=== PATIENT | male | born 1955 | race Caucasian/White ===

== ENCOUNTER 2018-12-13 00:53 | Emergency (ER) | payer OTHER ==
[~2018-12-13] VITALS: Ht 185.4 cm; Wt 117.0 kg
[2018-12-13] MEDS ORDERED: LOVASTATIN40 MG PO (01:07)
[2018-12-13] MEDS ORDERED: METOPROLOL SUCC25 MG PO (01:08)
[2018-12-13] MEDS ORDERED: PROTONIX40 MG PO (02:17)
--- NOTE | 2018-12-13 20:05 | EKG ---
[facility] [address] [facility] [place], [place] [address] Signed Sinus rhythm with marked sinus arrhythmia Otherwise normal ECG No previous ECGs available Confirmed by BON REDD MD ([id number]) on 12/13/2018 8:05:15 PM Electronically Signed By: BON REDD MD 12/13/18 2005 PATIENT NAME: SHOSHANA JARAMILLO Fadi Electrocardiogram DATE OF : 57 PHYSICIAN: BON REDD MD REPORT #: [id number] REPORT IS CONFIDENTIAL AND NOT TO BE RELEASED WITHOUT AUTHORIZATION
== END 2018-12-13 02:33 | disposition home or self-care (01) ==
LOC: ED 00:53
DX: K21.9 Gastro-esophageal reflux disease without esophagitis (principal); I10 Essential (primary) hypertension; E78.5 Hyperlipidemia, unspecified; Z79.899 Other long term (current) drug therapy
CPT/HCPCS: 71045; 80053; 83735; 84484; 85025; 85379; 93005; 93010; 99285-25

== ENCOUNTER 2018-12-14 10:41 | Observation (INO) | payer OTHER ==
[~2018-12-14] VITALS: Ht 188 cm; Wt 117.9 kg
[~2018-12-14 10:41] MED LIST: LOVASTATIN40 MG PO; METOPROLOL SUCC25 MG PO; PROTONIX40 MG PO
--- OUTSIDE RECORDS SUMMARY | 2018-12-14 10:44 | XMS ---
PreManage Notification: SHOSHANA JARAMILLO Security Border Measurer Events No recent Security Events currently on file CRITERIA MET - [facility] - 2 Visits in 30 Days CARE PROVIDERS There are no care providers on record at this time. Erica has no Care Guidelines for this patient. Emanuel VISIT COUNT (12 MO.) [address] [facility] TOTAL 2 NOTE: Visits indicate total known visits. ED/C VISIT TRACKING (12 MO.) 12/14/2018 10:41 [facility] [place] TYPE: Emergency COMPLAINT: - CHEST PAIN 12/13/2018 00:54 [facility] [place] TYPE: Emergency COMPLAINT: - CHEST PAIN/SOB INPATIENT VISIT TRACKING (12 MO.) No inpatient visits to display in this time frame [id number]
[2018-12-15] MEDS ORDERED: ASPIRIN EC81 MG PO (09:18)
[2018-12-15] MEDS ORDERED: METOPROLOL SUCC50 MG PO (09:18)
[2018-12-15] MEDS ORDERED: IBUPROFEN800 MG PO (09:19)
[2018-12-15] MEDS ORDERED: FAMOTIDINE20 MG PO (09:19)
--- NOTE | 2018-12-15 12:32 | EKG ---
[facility] [address] [place] [address] Signed Atrial fibrillation with rapid ventricular rate Nonspecific ST abnormality Abnormal ECG When compared with ECG of 13-DEC-2018 00:58, premature supraventricular complexes are now present Vent. rate has increased BY 68 BPM Nonspecific T wave abnormality now evident in Inferior leads Reconfirmed by BON REDD MD ([id number]) on 12/15/2018 12:32:38 PM Electronically Signed By: BON REDD MD 12/15/18 1232 Electronically Signed By: BON REDD MD 12/15/18 1232 PATIENT NAME: SHOSHANA JARAMILLO Electrocardiogram DATE OF : 57 PHYSICIAN: BON REDD MD REPORT #: [id number] REPORT IS CONFIDENTIAL AND NOT TO BE RELEASED WITHOUT AUTHORIZATION
== END 2018-12-15 11:02 | disposition home or self-care (01) ==
LOC: ED 10:41 → CCU 10:42
PROVIDERS: ADMIT Internal Medicine
DX: I48.0 Paroxysmal atrial fibrillation (principal); I31.9 Disease of pericardium, unspecified; I10 Essential (primary) hypertension; E78.5 Hyperlipidemia, unspecified; Z79.899 Other long term (current) drug therapy; Z88.8 Allergy status to other drugs, medicaments and biological substances
CPT/HCPCS: 71046; 80053; 83036; 83735; 83880; 84484; 85025; 85651; 86140; 93005; 93010; 96374; 96375; 99284-25; G0378; J3475

== ENCOUNTER 2020-10-25 10:58 | Inpatient (IN) | payer OTHER ==
[~2020-10-25] VITALS: Ht 188 cm; Wt 117.9 kg
[~2020-10-25 10:58] MED LIST changes: +ASPIRIN EC81 MG PO; +FAMOTIDINE20 MG PO; +IBUPROFEN800 MG PO; +METOPROLOL SUCC50 MG PO
[2020-10-25] MEDS ORDERED: VIRTUSSIN AC L118 ML PO (11:37)
[2020-10-25] MEDS ORDERED: IRBESARTAN-HCT1 EACH PO (11:37)
--- NOTE | 2020-10-25 16:50 | NUR ---
MED REC COMPLETE
--- NOTE | 2020-10-25 17:06 | NUR ---
PT ARRIVED AT 1440, VIA STRETCHER FROM ED, UP TO BR, VOIDED QS, DARK URINE. SOB WITH EXERTION PRESENTL. DIAPHORETIC, AFEBRILE HAD A TEMP EARLIER IN ED. BACK TO BED. COOP. LUNGS COARSE AND CRACKLES. O2 2LONC, LAST BM X1WK AGO STATED, ABD SOFT, HERB. IRREGULAR RATE, HX AFIB. NO CP. SL R WRIST. PATENT. COOP WITH ADMIT ASSESSMENT.
--- NOTE | 2020-10-25 18:05 | NUR ---
PT ADMITTED FROM ED, SBA, UP TO BR, VOIDED QS URINE. TOLERATING LIQUIDS WELL. SOB WITH EXERTION NOTED ON RETURN TO BED. O2 2LNC ON ADMIT, CPOX AT 90-94% LUNGS DIM UPPER AND CRACKLES AT BASES. A TEMP OF 101.8 IN THE ED. RECEIVED TYLENOL. PT WAS AFEBRILE ON ADMIT TO M/S. WAS VERY DIAPHORETIC. SKIN DRIED. NEW GOWN GIVEN. PRONING POSITIONS AND MED ED PAMPHLET EDUCATION GIVEN VERBALLY AND PT STATED UNDERSTANDING. COOPERATIVE. AWARE OF AIRBORNE ISOLATION PRECAUTIONS. SL PATENT
--- NOTE | 2020-10-25 18:50 | NUR ---
Resting, O2 in place, no distress, eyes closed. fluids and cll light at bedside
--- NOTE | 2020-10-25 19:20 | NUR ---
SHIFT REPORT RECEIVED FROM DAYSHIFT WILLIAM VILLARREAL IN HALLWAY. pt AWAKE AND ON THE PHONE, 2LNC IN PLACE. CPOX ALSO IN PLACE. SPO2 LOW 90'S AND HR WNL. NO NEEDS VERBALIZED, CALL LIGHT IN REACH.
--- NOTE | 2020-10-25 20:52 | NUR ---
ASSESSMENT COMPLETE, SCHEDULED MEDS GIVEN (SEE EMAR). pt DENIES PAIN AND NAUSEA. VSS, pt AFEBRILE. CPOX IN PLACE, 2LNC IN PLACE. pt IN BED, pt EDUCATED ON IMPORTANCE OF PRONING AND DEEP BREATHING ALONG WITH USE OF IS. pt VERBALIZED UNDERSTANDING. INDEPENDENT IN ROOM. NO FURTHER NEEDS, CALL LIGHT IN REACH.
--- NOTE | 2020-10-26 00:23 | NUR ---
ROUNDED ON pt, pt RESTING QUIETLY AND AWOKE TO VOICE. DENIES NEEDS OR CONCERNS. RESTING QUIETLY ON HIS RIGHT SIDE, CALL LIGHT IN REACH. RR EVEN AND UNLABORED. CPOX IN PLACE, 2LNC IN PLACE, SPO2 AND HR BOTH LOW 90'S.
--- NOTE | 2020-10-26 01:49 | NUR ---
CPOX ALARMING, THIS RN TO ASSESS. SPO2 MID TO UPPER 80'S ON 2LNC. pt REPORTS HE RECENTLY GOT OOB TO VOID AND IS BACK IN BED. O2 TITRATED TO 4LNC TO RECOVER AND IS NOW 3.5LNC AND SPO2 SUSTAINING AT 90%. HR 90'S. ASSESSMENT COMPLETE, NO NEW CHANGES OR CONCERNS. pt STATES, "IT HAPPENS EVERY TIME I GET UP TO PEE, BUT NO WAY IN HECK AM I GONNA USE THAT THING", POINTING TO URINAL. BSC OFFERED TO BE PULLED CLOSER TO BED, pt DECLINED. ORAL TEMP OF 100.1, pt COUGHED WITH USE OF IS, TEMP RECHECKED AND IS 99.6. PRN TYLENOL GIVEN. NO FURTHER NEEDS, CALL LIGHT IN REACH.
--- NOTE | 2020-10-26 05:49 | NUR ---
WRITTEN EDUCATION REGARDING PRONING ALREADY IN ROOM, pt VERBALIZES UNDERSTANDING. HOUSEKEEPER MANAGER JEANNE IN ROOM COLLECTING VS. CPOX IN PLACE, SPO2 90-91% ON 3.5LNC. WILL CONTINUE TO MONITOR. CALL LIGHT IN REACH.
--- NOTE | 2020-10-26 07:23 | NUR ---
REPORT RECEIVED FROM WILLIAM FINNEY. PT RESTING IN BED, REPORTS HE IS GOING TO GET UP TO THE RESTROOM SOON. PT INDEPENDANT IN ROOM, STEADY ON FEET PER REPORT. PT DENIES PAIN AND NAUSEA. OXYGEN SATURATION 93% ON 3L O2 BY NC. HEART RATE 89. ADDITIONAL CRANBERRY JUICE PROVIDED PER PT REQUEST. NO ADDITIONAL REQUESTS OR COMPLAINTS. CALL LIGHT WITHIN REACH.
--- NOTE | 2020-10-26 08:00 | NUR ---
THIS RN TO ROOM BREIFLY TO CHECK ON PT AND EVALUATE NEEDS PRIOR TO MORNING ASSESSMENT. PT DENIES ADDITONAL REQUESTS OR COMPLAINTS. O2 SATURATON 91% ON 2L O2 BY NC. PT STATES SHE WOULD LIKE A SHOWER TODAY. PLANS MADE FOR A SHOWER THIS MORNING. CALL LIGHT WITHIN REACH.
--- NOTE | 2020-10-26 08:00 | NUR ---
THIS RN TO ROOM BREIFLY TO CHECK ON PT AND EVALUATE NEEDS PRIOR TO MORNING ASSESSMENT. CRANBERRY JUICE REFILLED. O2 SATURATON 91% ON 3L O2 BY NC. PT STATES HE WOULD LIKE A SHOWER TODAY. PLANS MADE FOR A SHOWER THIS MORNING. CALL LIGHT WITHIN REACH.
--- NOTE | 2020-10-26 09:01 | NUR ---
MORNING ASSESSESSMENT AND MEDICAITON DUE. PT RESTING IN BED WITH HEAD OF BED ELEVATED TO 31 DEGREES. PT DENIES PAIN AND NAUSEA. IV ASSESSED, WNL, FLUSHES EASILY WITH NO S/S OF PHELBITIS NOTED. ALCOHOL CAP APPLIED. PT ALERT AND ORIENTED AND RESPONDING TO QUESTIONS APPROPRIATLY. PT IRRITABLE AT TIMES WITH CARES, "I THOUGHT YOU GUYS WERE SUPOSED TO ACTUALLY BE GIVING ME TREATMENTS." CARES AND TREATMENTS EXPLAINED TO PT, PT VERBALIZES UNDERSTANDING. MEDICAITONS REVIEWED WITH PT IN DETAIL, INCLUDING THEIR PURPOSE AND SIDE EFFECTS. PT INDEPENDANT IN ROOM. STEADY ON FEET. DRY COUGH INCREASES SIGNIFICANTLY WITH ANY ACTIVITY.PT DECLINES COUGH MEDICATION AT FIRST, EDUCATION DONE AND PT AGREES, SEE MAR FOR MEDICATION GIVEN. PT DENIES ANY SPUTUM PRODUCTION. LUNG SOUNDS CLEAR IN UPPER LOBES. LEFT LOWER HAS FINE CRACKELS, RIGHT LOWER LOBE DEMINISHED. I.S. PROVIDED, EDUCATION DONE. PT DEMONSTRATES USE OF I.S. REACHING 750 X2 AND 1000 X1. POOR TOLERANCE OF I.S, COUGH INCREASES AND PT SHOVES I.S. AWAY STATING "I WON'T DO THAT!" PT ENCORUAGED TO CONTINUE WITH I.S. HE FEELS ABLE. LAST BOWEL MOVEMENT NOTED TO BE 10/18. BOWEL REGEMINE MEDICAITONS ORDERED, PT DECLINES MEDICATIONS AT THIS TIME. PT STATES HE DOES NOT LIKE THE BREAKFAST FOODS. NEW FOODS OFFERED, PT DECLINES. PT DENIES ADDITIONAL REQUESTS OR COMPLAINTS AT THIS TIME. CALL LIGHT WITHIN REACH. BED RAILS UP.
--- NOTE | 2020-10-26 10:14 | NUR ---
THIS RN TO ROOM TO CHECK ON PT. PT DENIES PAIN AND NAUSEA. O2 AT 92% ON 3L O2 BY NC. O2 INCREASTED TO 6L O2 BY NC FOR SHOWER. IV COVERED. PT UP TO SHOWER, INDEPENDANT WITH SHOWER. LINENS CHANGED. PT DEMONSTRATES USE OF CALL LIGHT. NO ADDITIONAL REQUESTS OR COMPLAINTS. CALL LIGHT WITHIN REACH.
--- NOTE | 2020-10-26 11:11 | NUR ---
PT FINISHED WITH SHOWER. PT BACK TO BED. REPORTS HE WAS ONLY ABLE TO "DO THE IMPORTANT STUFF" WHILE IN THE SHOWER. PT IRRITABLE: REFUSES TO ORDER LUNCH STATING "THERE ISN'T ANYTHING IN THERE I WILL EAT." PT OFFERED ORAL CARE AT BEDSIDE, DECLINES.PT WEANTED TO 3L O2 BY NC, UNABLE TO TOLERATE WITH OXYGEN SATURATIONS DROPING TO 84%. O2 INCREASED BACK UP TO 6L O2 BY NC. OXYGEN SATURATIONS 89-91%. PT ENCOURAGED TO PRONE. PT DECLINES. EDUCATION DONE WITH PT AND PTS STATES "I JUST DON'T WANT TO DO THAT." WILL CONTINUE TO ENCOURAGE PT. PT DENIES PAIN AND NAUSEA AT THIS TIME. CALL LIGHT WITHIN REACH. BED RAILS UP.
--- NOTE | 2020-10-26 11:30 | NUR ---
THIS RN TO ROOM WITH MD FOR ROUNDS. MD RECCOMENDS CPAP BE TRIED, PT AGREES TO TRY THIS THERAPY. RT CALLED AND STATES HE WILL BE ABLE TO SET UP CPAP THIS AFTERNOON. PT DENIES ADDITIONAL REQUESTS OR COMPLAINTS AT THIS TIME. CALL LIGHT WITHIN REACH.
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
--- NOTE | 2020-10-26 12:37 | NUR ---
THIS RN TO ROOM TO CHECK ON PT. PT RESTING ON LEFT SIDE. PT UPDATED ON ARRIVAL OF CPAP MACHINE THIS AFTERNOON. PT AGREES TO TRY PRONING THIS AFTERNOON "IN A LITTLE WHILE." NO ADDITIONAL REQUESTS OR COMPLAINTS. OXYGEN SATURATIONS 93% ON 6L O2 BY NC. NO ADDITIONAL REQUSTS OR COMPLAINTS. CALL LIGHT WITHIN REACH.
--- NOTE | 2020-10-26 13:16 | NUR ---
AFTERNOON ASSESSMENT AND MEDICATION DUE. PT RESTING ON LEFT SIDE WITH EYES CLOSED. AWAKENS TO MOVEMENT IN THE ROOM. PT DENIES PAIN AND NAUSEA. PT STATES HE WILL TRY PRONING AT THIS TIME. PT ALERT AND OREINTED, CONTINUES TO BE IRRITABLE. PT STATES "I'M JUST GOING TO GIVE UP." THERPUTIC COMMUNICATION DONE WITH PT. PT STATES HE JUST NEEDS SOME REST. FINE CRACKELS CONTINUE IN LOWER LOBES. PT DECLINES USE OF I.S. STATING "IT MAKES ME COUGH TO MUCH." PT DECLINES COUGH MEDICATION. O2 SATURATIONS 90-91% ON 6L O2 BY NC PRIOR TO PRONING. PT STATES HE WAS ABLE TO HAVE A BOWEL MOVEMENT, PT STATES BOWEL MOVEMENT WAS BROWN, SOFT, AND "REGULAR" SIZED; NOT SEEN BY THIS RN. PT ASSISTED INTO PRONE POSITION, SUPPORTED WITH PILLOWS. O2 SATURATIONS CLIMB TO 95% ON 6L O2 BY NC. PT DENIES ADDITIONAL REQUESTS OR COMPLAINTS. CALL LIGHT WITHIN REACH. BED RAILS UP.
--- NOTE | 2020-10-26 14:23 | NUR ---
THIS RN TO ROOM TO CHECK ON PT. PT JUST UP WITH RN IMAGING TO USE RESTROOM. PT BACK TO BED. REMAINS ON 6L O2 BY NC WITH OXYGEN SATURATIONS OF 89-91%. LEN, RT TO BEDSIDE TO SET UP CPAP MACHINE. CPAP MACHINE IN PLACE WITH 6L O2 BLEED IN, WITH CPAP SET TO 10CM H2O. PT EDUCATION DONE REGARDING PLACING NASAL CANULA ON RIGHT AWAY IF HE DECIDES TO REMOVE CPAP. OXYGEN SATURATION 9-91%. HUMIDIFICATION ADDED TO NASAL CANULA FOR USE LATER. PT REPORTS PRONING WAS "TERRIBLE." DOES NOT WANT TO PRONE AGAIN, WILL CONTINUE TO EDUCATE. PT RESTING ON BACK WITH HEAD OF BED ELEVATED TO 19 DEGREES. PT DENIES ADDITONAL REQUESTS OR COMPLAINTS. CALL LIGHT CHELSEAALFONSO SAMS.
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
--- NOTE | 2020-10-26 16:35 | NUR ---
MD UPDATED ON PT STATUS. NEW MEDICATIONS ORDERED. (SEE MAR FOR MEDICATION GIVEN). MD STATES TO DISCONTINUE CPAP USE. IV ASSESSED, WNL, NO S/S OF PHELBITIS NOTED. REMDESIVIR STARTED. PT RESTING IN BED. O2 SATURATIONS 89-91% ON 8L O2 BY NC. PT REQUESTS TO TRY 1/2 A SANDWICH FOR DINNER, ORDER PLACED. NO ADDITIONAL REQUESTS OR COMPLAINTS. CALL LIGHT WITHIN REACH. BED RAILS UP.
--- NOTE | 2020-10-26 17:14 | EKG ---
[facility] [address] [facility] [place] [address] Signed Sinus rhythm with premature atrial complexes with aberrant conduction Rightward axis Low voltage QRS Borderline ECG When compared with ECG of 19-MAY-2020 00:52, aberrant conduction is now present Confirmed by BON REDD MD ([id number]) on 10/26/2020 5:14:19 PM Electronically Signed By: BON REDD MD 10/26/20 1714 PATIENT NAME: SHOSHANA JARAMILLO SRIRAM Electrocardiogram DATE OF : 57 PHYSICIAN: BON REDD MD REPORT #: [id number] REPORT IS CONFIDENTIAL AND NOT TO BE RELEASED WITHOUT AUTHORIZATION
--- NOTE | 2020-10-26 17:21 | NUR ---
PUMP ALARMING, INFUSION AND FLUSH COMPLETE. IV SALINE LOCKED PER PROTOCOL. ALCOHOL CAP APPLIED. DINNER DELIVIERD TO PT. OXYGEN SATURATIONS 94-95% ON 8L O2 BY NC. OXGYEN DECREASED TO 6L O2 BY NC WITH OXYGEN SATURATIONS 89-93%. PT REPORTS HE FEELS "MUCH BETTER" AND MORE RELAXED NOW. PT WATCHING TV. NO ADDITIONAL REQUESTS OR COMPLAINTS. CALL LIGHT WITHIN REACH.
--- NOTE | 2020-10-26 17:35 | NUR ---
PT HERE FOR COVID RELATED PNEUMONIA. PT UP IN ROOM WITH STAND BY ASSIST AND INDEPENDANT TO RESTROOM. SHOWER THIS THIS SHIFT AFTER WHICH PT WAS VERY EXHAUSTED. PT TOELRATING 2GRAM SODIUM DIET WITH MINIMAL APPITITE. OXYGEN INCREASED THIS SHIFT TO 6L O2 BY NC. CPAP TRIED, PT VERY ANXIOUS AND REPORTS PTSD WITH CPAP USE. PT TEARFUL AT TIMES AND REPORTS ANXIETY, HYDROXIZINE ORDERED AND GIVEN WITH GOOD EFFECT. PT AFEBRIAL THIS SHIFT. HOME MEDICATIONS ORDERED. PT PARTICIPATING IN PRONING PROTOCOL MINIMALLY. HYDRATION ENCORUAGED. PT VOIDING QUANTITY SUFFICIENT. PT USES CALL LIGHT APPROPRIATLY.
--- NOTE | 2020-10-26 18:27 | NUR ---
THIS RN TO ROOM TO CHECK ON PT. PT RESTING IN BED WITH HEAD OF BED ELEVATED TO 35 DEGREES. PT REPORTS HE WAS ABLE TO "EAT A LITTLE" FOR DINNER. PT MORE RELAXED AND CHEERFUL, WATCHING TV. O2 SATURATIONS 92% ON 6L O2 BY NC. WITH HEART RATE OF 86. PT DENIES ADDITIONAL REQUESTS OR COMPLAINTS AT THIS TIME. CALL LIGHT WITHIN REACH. BED RAILS UP.
--- NOTE | 2020-10-26 19:05 | NUR ---
[facility]. pt RESTING IN BED, HOB ELEVATED, 6LNC IN PLACE, CPOX ALSO IN PLACE. SPO2 91%, HR WNL. NO DISTRESS NOTED, CALL LIGHT IN REACH.
--- NOTE | 2020-10-26 19:19 | NUR ---
REPORT GIVEN TO WILLIAM FINNEY, WHO IS ASSUMING CARE OF PT.
--- NOTE | 2020-10-26 19:37 | NUR ---
pt's MOTHER CALLED AND ASKED FOR UPDATE, OKAY TO GIVE UPDATE PER pt. UPDATE PROVIDED AND QUESTIONS ANSWERED.
--- NOTE | 2020-10-26 21:36 | NUR ---
ASSESSMENT COMPLETE, SCHEDULED MEDS GIVEN (SEE EMAR). VSS, pt A/OX4. CPOX IN PLACE. pt ON 5LNC WITH BUBBLER. pt DEMONSTRATED USE OF IS, POORLY TOLERATED D/T COUGHING. PRN COUGH AND SLEEP MEDICATION ALSO GIVEN. DISCUSSED WITH pt EDUCATION REGARDING PRONING SUCH POSITION CHANGES AND FREQUENCY. pt REFUSES TO LAY PRONE AT THIS TIME, WAVING HANDS SIGN OF REFUSAL AND STATES, "OH NO I'M NOT DOING THAT, NO WAY". pt REPORTS TODAY WAS BUSY AND AND TRAMATIC FOR pt , THERAPEUTIC COMMUNICATION PROVIDED. pt AGREES TO CHANGE POSITIONS FROM SIDE TO SIDE AND TO AVOID LAYING FLAT ON BACK. CURRENTLY LAYING ON BACK WITH HOB ELEVATED TO 30-60 DEGREES. pt DENIES FURTHER NEEDS, CALL LIGHT IN REACH.
--- NOTE | 2020-10-26 22:45 | NUR ---
IN ROOM TO GIVE PRN ANXIETY MEDICATION PER pt REQUEST, pt REMAINS ON 5LNC WITH BUBBLER. SPO2 90-91%. pt CONTINUES TO REFUSE TO PRONE IN BED BUT WAS FOUND RESTING ON LEFT SIDE. pt STATES, "GIVE ME SOME CREDIT FOR WHAT I AM DOING". pt RELAXED AND RESTING IN BED, DENIES NEEDS. CALL LIGHT IN REACH.
--- NOTE | 2020-10-26 23:59 | NUR ---
pt RESTING IN BED, LAYING ON HIS BACK/LEFT SIDE. HOB 30-40 DEGREES ELEVATED. 5LNC WITH BUBBLER IN PLACE, CPOX ON AND SPO2 91-92%, HR 70'S. NO DISTRESS NOTED, RR EVEN AND UNLABORED. CALL LIGHT IN REACH.
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
--- NOTE | 2020-10-27 05:45 | NUR ---
VSS, CPOX IN PLACE. pt ON 5.5LNC WITH BUBBLER. I&O'S ALSO COMPLETE. PRN ANXIETY MED GIVEN, NO FURTHER NEEDS. CALL LIGHT IN REACH.
--- NOTE | 2020-10-27 07:37 | NUR ---
REPORT RECIEVED FROM [facility] RNREG. PATIENT IS RESTING IN BED AT THIS TIME.
--- NOTE | 2020-10-27 08:10 | NUR ---
MORNING ASSESSMENT AND MEDICATIONS DONE. PATIENT DENIES PAIN OR NAUSEA, POOR APPETITE RELATED TO INABILITY TO TASTE MOST FOOD. PATIENT IS ON 5.5L VIA NC FOR 90% O2 SATS. ENCOURAGED PATIENT TO PRONE, ABLE TO TOLERATE SITTING UP AND SIDE-LYING, BUT CANNOT LAY ON STOMACH. LUNGS ARE CLEAR IN UPPER DIAZ, DIM WITH CRACKLES IN BASES. PATIENT GET SOB WITH CONVERSATION, BUT O2 SATS REMAIN STABLE.
--- NOTE | 2020-10-27 09:30 | NUR ---
Spoke with Lzáaro. He lives in [place] in a 1 story home with 2 step s. 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 Does not use any DME. States friends or family will assist him on dc as his is also not feeling well.
--- NOTE | 2020-10-27 10:26 | NUR ---
PATIENT IN BED WATCHING TV AT THIS TIME. PATIENT IND IN ROOM. WARM WASHCLOTH GIVEN. ORAL CARE SUPPLIES AT SINK. PATIENT REFUSED SHOWER FOR TODAY. VITALS AND I&O'S CHARTED. FRESH WATER AND JUICE GIVEN. CALL LIGHT IN REACH. NO FURTHER NEEDS AT THIS TIME.
--- NOTE | 2020-10-27 10:51 | NUR ---
PATIENT IS RESTING IN BED, DENIES NEEDS.
--- NOTE | 2020-10-27 12:59 | NUR ---
PATIENT RESTING IN BED, HAS FOOD AT BEDSIDE, DENIES OTHER NEEDS.
--- NOTE | 2020-10-27 13:19 | NUR ---
AFTERNOON ASSESSMENT DONE, ENCOURAGED PATINET TO PRONE AND HE CONTINUES TO MINIMALLY PRONE.
--- NOTE | 2020-10-27 15:28 | NUR ---
PATIENT IS RESTING, DENIES NEEDS.
--- NOTE | 2020-10-27 15:50 | NUR ---
REPORT RECEVIED FROM WILLIAM LUQUE. THIS RN ASSUMING CARE OF PT. PT RESTING IN BED ON BACK WITH HEAD OF BED ELEVATED TO 30 DEGREES. PT DENIES REQUESTS OR COMPLAINTS AT THIS TIME.
--- NOTE | 2020-10-27 16:33 | NUR ---
PT UP TO RESTROOM, OXYGEN SATURATION DROPS TO 84-85% WITH ACTIVITY. COUGH INCREASES. PT BACK TO BED AND ENCOURAGED TO REST ON SIDES OR PRONE. PT DECLINES PRONING BUT AGREES TO REST ON RIGHT SIDE. OXGYEN SATURATIONS RECOVERS WITH IN 5 MINUTES TO 89-91% ON 5L O2 BY NC. PT DENIES ADDITIONAL REQUESTS OR COMPLAINTS. CALL LIGHT WITHIN REACH. BED RAILS UP.
--- NOTE | 2020-10-27 17:48 | NUR ---
MEDICATION DUE. THIS RN TO ROOM. PT SITTING UP IN BED WITH HEAD OF BED ELEVATED. PT DECLINES DINNER BUT STATES HE IS EATING ROAST BEEF ROLLS AND CRACKERS. ADDITIONAL CRACKERS PROVIDED. MEDICATIONS GIVEN (SEE MAR). O2 SATURATIONS 90-92% ON 5L O2 BY NC. PT CONTINUES TO HAVE LOWER RESERVE, WITH OXYGEN SATURATIONS DROPPING QUICKLY WITH ACTIVITY. PT CHEERFUL AND TELLING STORIES OF HIS FAMILY. PT DENIES ADDITONAL REQUESTS OR COMPLAINTS. CALL LIGHT WITHIN REACH.
--- NOTE | 2020-10-27 17:58 | NUR ---
PT REQUESTS HIS DAUGHTER BE CALLED WITH UPDATE. PHONE NUMBER PROVIDED. NAVEED CALLED PER PTS REQUEST AND UPDATED. NAVEED STATES HER QUESTIONS HAVE BEEN ANSWERED.
--- NOTE | 2020-10-27 18:16 | NUR ---
PATIENT SITTING UP IN BED WATCHING TV. FRESH WATER AND SODA GIVEN. VITALS AND I&O'S CHARTED. CALL LIGHT IN REACH. NO FURTHER NEEDS AT THIS TIME.
--- NOTE | 2020-10-27 18:18 | NUR ---
PT HERE FOR COVID RELATED PNEUMONIA. PT UP IN ROOM WITH STAND BY ASSIST AND INDEPENDANT TO RESTROOM. PT TOELRATING 2GRAM SODIUM DIET WITH MINIMAL APPITITE, TRYING SNACKS AND SMALL MEALS. PT WEANED TO 5L O2 BY NC THIS SHIFT WITH OXYGEN SATURATIONS 90-92% WHEN RESTING. LOW RESERVES WITH OXGYEN SATURATIONS DROPPING TO 84-88 WITH ACTIVITY. PTS MOOD IMPROVED THIS SHIFT, PT CHEERFUL AND STATES HE FEELS BETTER. PT AFEBRIAL THIS SHIFT. PT PARTICIPATING IN PRONING PROTOCOL MINIMALLY. HYDRATION ENCORUAGED. PT VOIDING QUANTITY SUFFICIENT. PT USES CALL LIGHT APPROPRIATLY.
--- NOTE | 2020-10-27 18:20 | NUR ---
PUMP ALARMING, INFUSION AND FLUSH COMPLETE. IV SALINE LOCKED BY WILLIAM HODGES. THIS RN TO ROOM TO CHECK ON PT. OXYGEN SATURATIONS 92% ON 5-6L O2 BY NC. PT DENIES REQUESTS OR COMPLAINTS. CALL LIGHT WITHIN REACH. BED RAILS UP.
--- NOTE | 2020-10-27 18:30 | NUR ---
REPORT GIVEN TO WILLIAM LUQUE WHO IS RESUMING CARE OF PT.
--- NOTE | 2020-10-27 19:37 | NUR ---
REPORT RECEIVED FROM WILLIAM FORRESTER. pt RESTING IN BED. CPOX IN PLACE. SPO2 93% ON TELE 1, 6L OXYGEN BY NC IN PLACE.
--- NOTE | 2020-10-27 20:53 | NUR ---
IN pt ROOM FOR MEDICATION ADMINISTRATION. SPO2 85-86% ON 6L AFTER AMBULATION TO RESTROOM FOR VOID AND BACK TO BED. TITRATED TO 8L OXYGEN BY NC FOR TWO MINUTES AND BACK TO 6L OXYGEN BY NC, SPO2 NOW 90% ON 6L OXYGEN BY NC. PRN ANXIETY MEDICATION, PRN COUGH MEDICATION ADMINISTERED. pt ENCOURAGED TO PRONE, LIE ON SIDE. ASSESSMENT COMPLETE. LUNG SOUNDS DIMINISHED IN BASES. CALL LIGHT IN REACH.
--- NOTE | 2020-10-27 23:04 | NUR ---
pt NOTED AT 80% WITH 6L OXYGEN BY NC IN PLACE. pt RESTING IN BED WITH EYES CLOSED, BREATHING UNLABORED. RT CORDELL IN ROOM TO PLACE pt ON HIGH FLOW NC.
--- NOTE | 2020-10-27 23:17 | NUR ---
SPO2 NOW 90% WITH 10 L OXYGEN BY HIGH FLOW NC.
--- NOTE | 2020-10-28 00:56 | NUR ---
CALL LIGHT ANSWERED. EXTENSION TUBING ADDED TO HIGH FLOW NC FOR pt TO AMBULATE TO RESTROOM. INDEPENDENT TO RESTROOM FOR VOID. pt BACK IN BED, SPO2 TITRATED TO 11L OXYGEN BY HIGH FLOW NC TO MAINTAIN SATURATIONS AT 88%. CALL LIGHT IN REACH. pt DENIES ANY NEEDS AT THIS TIME.
--- NOTE | 2020-10-28 01:58 | NUR ---
pt RESTING IN BED WITH EYES CLOSED, SPO2 92-94% ON TELE 1 WITH 11L OXYGEN BY HIGH FLOW NC IN PLACE.
--- NOTE | 2020-10-28 03:29 | NUR ---
SPO2 NOTED 78% ON TELE 1. THIS RN TO DOORWAY, pt BACK TO BED AFTER UP TO RESTROOM FOR VOID. SPO2 INCREASES TO 88% ON 11 L OXYGEN WHILE pt AT REST FOR A COUPLE MINUTES. pt DENIES PAIN. DENIES ANY NEEDS AT THIS TIME. CALL LIGHT IN REACH.
--- NOTE | 2020-10-28 04:41 | NUR ---
CHECKED ON Pt. RESTING ON LEFT SIDE. BREATHING EQUAL AND UNLABORED. 11L OXYGEN BY NC IN PLACE, SPO2 94% ON TELE 1.
--- NOTE | 2020-10-28 06:54 | NUR ---
PT AWAKE RESTING IN BED. ASSESSMENT COMPLETE. CRACKLES BILATERALLY BASES. pt SITTING UP, HOB ELEVATED. ENCOURAGED TO PRONE OR SIDE LIE. SPO2 89-90% WITH 11L OXYGEN BY HIGH FLOW NC. CALL LIGHT IN REACH. pt PROVIDED WITH JUICE, WATER, SPRITE. BREAKFAST MENU IN PLACE.
--- NOTE | 2020-10-28 07:30 | NUR ---
this rn received report from michelle barr. pt appears to be resting at this time with respirations noted and call light within reach. pt on cpox that shows greater than 90%
--- NOTE | 2020-10-28 08:15 | NUR ---
this rn in pts room to bring pt his morning meds. pt sitting up in bed and states that he thought he was doing better but his sats say otherwise. this rn discussed with pt about proning, asked if he would be willing to sleep on his belly, pt reports that this causes him too much anxiety but he will side prone, this rn discussed with pt that he will need to work hard at getting proned today or he could be going going down the path of requiring more O2. pt states understanding and will at the very least side prone.
--- NOTE | 2020-10-28 09:05 | NUR ---
THIS RN IN PTS ROOM TO GIVE PT HIS BP MEDS. VITALS CHECKED. THIS RN DISCUSSED AGAIN WITH PT ABOUT PRONING AND THE IMPORTANCE OF GETTING ON HIS BELLY. PT AGREEABLE AND ABLE TO PRONE. PT THEN STARTED COUGHING, THIS RN EDUCATED PT THAT THIS WAS NORMAL GOOD, STATING THAT HE NEEDED TO GET THE BUILD UP FROM THE VIRUS OUT OF HIS LUNGS. PT AGREEABLE STILL AND KEPT ASKING HOW LONG HE NEEDED TO STAY IN THE POSITION, THIS RN EDUCATED PT THAT AT LEAST 30MINS TO 2 HOURS WOULD BE THE MOST BENEFICIAL
--- NOTE | 2020-10-28 11:15 | NUR ---
THIS RN TO CEK ON PT. PT APPEARS TO HAE JUST WOKEN UP FROM A NAP. PT STATES TAHT HE HAD BEEN FULL PRONING. PTS SATS APPEAR TO BE BETTER AT THIS POINT, PT SATS NOTED TO BE UP IN THE MID TO HIGH 90S ON 11l HI-CARLIN OXYGEN. PT STATES THAT HE NEEDS NOTHING AT THIS TIME. THIS RN TO CHECK ON HIM LATER.
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
--- NOTE | 2020-10-28 14:20 | NUR ---
THIS RN IN PTS ROOM TO DO PTS ASSESSMENT. PT SITTING ON SIDE OF BED. PT JUST AMBULATED TO RESTROOM AND ONLY DIPPED TO 89% ON 11L NC HI-CARLIN. PT APPEARS TO BE RECOVERING WELL AND STATES THAT HE IS HAVING A DRY COUGH. THIS RN TO PROVIDE PT WITH TESSALON MONALISA AT THIS TIME. MIKE WHITESIDE IN PTS ROOM TO DO VITALS. PT STATES THAT HE NEEDS NTOHING AT THIS TIME. PT DOES APPEAR TO BE TIRED, THSI RN TO ENCOURAGE PT TO KEEP WORKING ON THE PRONING. PT STATES UNDERSTANDING. THIS RN TO TURN PT DOWN TO 10L NC HI-CARLIN AT THIS TIME
--- NOTE | 2020-10-28 14:40 | NUR ---
Vitals and I&Os were completed. Patient requested a seven-up with ice and has recieved it. RN discussed that proning is helping his oxygen intake. Patient is now lying on his back and watching tv. Call light is in reach and has no requests at this time.
--- NOTE | 2020-10-28 15:21 | NUR ---
No change in plan for dc.
--- NOTE | 2020-10-28 16:35 | NUR ---
PT HAD ROLLED ON TO HIS BACK SLIGHTLY AND DESATED TO 85% 11L NC HI CARLIN. WALKING BY AND STATES THAT HE WANTS VAPOTHERM. VALENTINO FROM RT CALLED TO SET THIS UP.
--- NOTE | 2020-10-28 16:40 | NUR ---
THIS RN ENCOURAGED PT TO SIDE PRONE. PT ABLE TO DO THIS AND SATS APPEAR TO BE IMPROVED AT 91%.
--- NOTE | 2020-10-28 16:53 | NUR ---
USAMA RN IN PTS ROOM TO ASSIST PT TO THE RESTROOM AND BACK PTS SATS MAINTAING GREATER THAN 89% ON 11L. THIS RN PROVIDED PT WITH FRESH ICE WATER, 7UP AND CRANBERRY JUICE. PT STATES THAT HE NEEDS NOTHING FURTHER AT THIS TIME.
--- NOTE | 2020-10-28 17:15 | NUR ---
THIS RN IN PTS ROOM TO START PTS REMDESIVIR. PT STATES THAT HE NEEDS TO USE THE RESTROOM. THIS RN DISUCSSED WITH HIM THAT WE NEED TO HYPEROXYGENATE HIM IF HE IS TO GET UP DUE TO DROPPING O2 SATS. PT STATES THAT HE DOESN'T LIKE TO USE THE URINAL. THIS RN DISCUSSED WITH PT THE HARSHNESS OF MOVING IS DOING ON HIS LUNGS AND HE NEEDS TO CHOOSE TO URNAL. PT STILL LIKES TO STAND UP ON THE EDGE OF THE BED TO PEE AND LIKES PRIVACY. PT DE SATED TO 85% ON 25L 80% FIO2.
--- NOTE | 2020-10-28 19:11 | NUR ---
RECEIVED PHONE CALL FROM PT DAUGHTER JENNIFER, WONDERED HOW HER DAD WAS, AND THAT SHE WAS SUPPOSE TO BE ON THE "LIST" TO GET INFORMATION. WILL ASK PATIENT AND CALL HER BACK.
--- NOTE | 2020-10-28 19:30 | NUR ---
report received from day shift school library media specialist at this time. pt to remain on medical floor until CCU bedspace is available.
--- NOTE | 2020-10-28 21:20 | NUR ---
pT TRANSPORTED OVER TO CCU BY THIS RN ON 6 LNC IN BED. ASSESSMENT COMPLETED. PT SAT UP AT BEDSIDE TO VOID, SPO2 DECREASED TO 83% WITH MINIMAL ACTIVITY.PT NOW LAYING IN LEFT SIDE LAYING POSITION. VAPOTHERM AT 30L/ 80% FIO2. DISCUSSED PLAN OF CARE WITH PT. PT AGREEABLE TO PLAN, ALL QUESTIONS ANSWERED. CALL LIGHT WITHIN REACH. WILL SHANNON MONITOR.
--- NOTE | 2020-10-28 21:20 | NUR ---
RETURNED CALL TO DAUGHTER. UPDATED ON PT CONDITION, INFORMED HER THAT HE WAS MOVING TO CCU; EXPLAINED THE PROCESS AND EXPECTATION, AND THAT PT WAS CONCERNED ABOUT HIS . INFORMATION WILL BE PASSED BACK TO PT. PT WANTS SATISH RODRIGUEZ TO BE THE 1ST CONTACT, SHE WILL PASS TO PT MOM, AND . PT HAS BEEN ILL WITH COVID WELL. PT HAD STATED THAT HE WAS AROUND THIS DAUGHTER AND HER FAMILY PRIOR TO BECOMING ILL HIMSELF. PT STATED HE IS NOT INTERESTED IN THE COVID VACCINATION. JENNIFER ELAINE, NUMBER: [phone].
--- NOTE | 2020-10-28 22:48 | NUR ---
PT CONTINUES TO LAY ON LEFT SIDE ON VAPOTHERM SPO2 = 98% AT THIS TIME. RESPIRATIONS EVEN ANUD UNLABORED. CALL [facility]. WILL CONTINUE TO MONITOR.
--- NOTE | 2020-10-28 23:19 | NUR ---
PT UP AT SIDE OF BED TO USE URINAL. SPO2 =90 PERCENT WITH VAPOTHERM AT 40L/100% PT NOW IN RIGHT SIDE LAYING POSITION. SPO2= 90% ON 30L/80 PERCENT. ASSESSMENT COMPLETED. CALL LIGHT WITHIN REACH. PT DENIES FURTHER NEEDS AT THIS TIME.
--- NOTE | 2020-10-29 00:17 | NUR ---
pt continues to rest on right side, spo2 =99% on 30L/ 80% FIO2. Respirations even and unlabored. call light within reach, no assessed needs at this time.
--- NOTE | 2020-10-29 01:28 | NUR ---
Pt up at bedside to void to urinal. sp2 decreased into the 70s. pt then turned onto left side. SPO@ = 87% at this time on vapotherm 30l/ 80%. call light within reach. will continue to monitor.
--- NOTE | 2020-10-29 04:08 | NUR ---
ASSESSMENT COMPLETED AT THIS TIME. PT ADVISED TO PRONE. PT STATES HE DOES NOT WANT TO LAY IN PRONE POSITION AT THIS TIME. TURN BACK ONTO LEFT SIDE. USED IS LUNGS SOUND DIM THROUGHOUT, NO ADVENTITIOUS SOUNDS NOTED. RESPIRATIONS EVEN AND UNLABORED. CALL LIGHT WITHIN REACH. DENIES FURTHER NEEDS AT THIS TIME.
--- NOTE | 2020-10-29 04:51 | NUR ---
PT UP AT SIDE OF BED TO URINATE. DISCUSSED NEED TO PRONE. PT AGREEABLE. PT NOW IN PRONE POSITION. VAPOTHERM REAMINS AT 30L/80% WILL CONTINUE TO MONITOR.
--- NOTE | 2020-10-29 05:23 | NUR ---
pt turned from prone position to right side. vapotherm FIO2 increased to 90% SPO2 = 92 percent at this time. Will continue to monitor.
--- NOTE | 2020-10-29 08:22 | NUR ---
AFTER PT SITS ON SIDE OF BED TO URINATE, PT LAYS ON L SIDE. PT REPORTS THAT HE IS NOT ABLE TO BREATH WELL THROUGH NOSE. PT INSTRUCTED TO BLOW NOSE. PT REPORTS "IT'S TOO DRY. PT GIVEN DECONGESTENT AND VAPOTHERM INCREASED TO 35L 100%. LEONEL RT NOTIFIED AND IS IN ROOM TO ADJUST O2 AMOUNT AND DELIVERY.
--- NOTE | 2020-10-29 08:35 | NUR ---
LEONEL RT PLACES NON-REBREATHER OVER VAPOTHERM AT 15L. PT SAO2 NOW 96%
--- NOTE | 2020-10-29 11:39 | NUR ---
PT DENIES HUNGER AT THIS TIME. PT LAYING IN BED WATCHING TV. DENIES NEEDS AT THIS TIME. CALL LIGHT IN REACH. PT LAYING ON SIDE. PT ON VAPOTHERM WITH NON-REBREATHER OVER THE TOP SET AT 10L BY DR. JORGE.
--- NOTE | 2020-10-29 15:40 | NUR ---
PT CONTINUES TO WATCH TV IN BED. PT REPORTING IMPROVMENT WITH NON-REBREATHER OVER THE TOP OF VAPOTHERM SET AT 10L. PT CONTINUES TO REFUSE NUTRITION AND DENIES NEEDS AT THIS TIME. CALL LIGHT IN REACH. BED RAILS IN UP POSITION.
--- NOTE | 2020-10-29 16:44 | NUR ---
PT ORDERED DINNER AND BREAKFAST TOMORROW. PT NOW OFF NON-REBREATHER. VAPOTHERM REMAINS IN PLACE SET TO 40L, 90%
--- NOTE | 2020-10-29 18:14 | NUR ---
PT'S VAPOTHERM TURNED TO 40L 80% O2.
--- NOTE | 2020-10-29 20:15 | NUR ---
PATIENT PROVIDED WITH SODA PER REQUEST. DISCUSSED BOWL CARE AT LENGTH AND PATIENT REPORTS HAVING SOME LOOSE STOOL IN THE LAST FEW DAYS HE HADN'T REPORTED TO NURSE STAFF. PATIENT UNDERSTANDSTEACHING AND REFUSES BOWEL CARE. VS STABLE. PATIENT TOLERATING VAPOTHERM 40L 80% Fi02. DISCUSSED PRONING AND CPT USE. PATIENT IS AGREEABLE TO PLAN. LUNG SOUNDS CLEAR IN THE UPPER LOBES CASIMIRO, DIM IN THE BASES.
--- NOTE | 2020-10-29 21:27 | NUR ---
PATIENT PROVIDED WITH PRNs TO ASSIST WITH RELAXING AND SLEEP. PATIENT DENICLINED PAIN OR COUGH MEDS. PATIENT WILL TURN TO HIS SIDE WHEN READY FOR SLEEP. WILL CALL IF NEEDS ASSIST.
--- NOTE | 2020-10-30 00:22 | NUR ---
PATIENT TOLERATING VAPOTHERM 40L 80% Fi02. RR 16-18. PATIENT SITTING UPRIGHT IN BED. PATIENT REPORTS TROUBLE STAYING ASLEEP. PATIENT DENIED KNOWING WHY HE COULDN'T SLEEP AND DENIED ANY NEEDS.
--- NOTE | 2020-10-30 04:55 | NUR ---
STRAIGHT STICK TO LEFT AC SNET SPECIMEN TO PATRICE, KATHY APPLIED
--- NOTE | 2020-10-30 05:12 | NUR ---
patient continues to tolerate vapotherm 40L 80% Fi02. Vanessa THOMAS in for morning lab draw and vs check. patient provided with po fluids and urnal emptied. no other needs at this time. call light in reach.
--- NOTE | 2020-10-30 06:00 | NUR ---
REDRAW REQUIRED. PATIENT IN NEED FOR IV ROTATION. NEW SITE ESTABLISHED WITH LAB DRAW. OLD IV SITE REMOVED, DC WNL. PATIENT TOLERATED WELL.
--- NOTE | 2020-10-30 07:35 | NUR ---
REPORT RECEIVED FROM DEMIAN THOMAS. PT IS AWAKE, SITTING UP IN BED, DENIES NEEDS AT THIS TIME.
--- NOTE | 2020-10-30 08:15 | NUR ---
IN TO DO AM ASSESSMENT AND AM MEDS. PT IS CURRENTLY ON HIGH FLOW NASAL CANNULA AT 10L. PT DENIES PAIN, AWAITING BREAKFAST, STATES HE DOES NOT HAVE MUCH OF AN APPETITE BUT WILL TRY TO EAT. DRINKING FLUIDS WELL. STATES OVERALL HE IS FEELING MUCH BETTER.
--- NOTE | 2020-10-30 09:12 | NUR ---
PT CALLS TO ASK FOR ANXIETY MEDICATION-WILL GIVE PRN VISTARIL.
--- NOTE | 2020-10-30 10:45 | NUR ---
PT CALLED WITH PANIC ATTACK, STEEL RIGGER IN TO ANSWER CALL LIGHT, DR JORGE THEN IN TO SEE PT. STATES HE WAS HAVING A PANIC ATTACK, FELT LIKE HE COULDNT MOVE, HE HAD BEEN IN PRONE POSITION BUT WAS ASSISTED TO SITTING POSITION. XANAX ONE TIME DOSE ORDERED BY DR JORGE AND GIVEN.
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
--- NOTE | 2020-10-30 12:00 | NUR ---
IN TO CHECK ON PT AND HE APPEARS TO BE SLEEPING, EYES CLOSED, WALKED INTO ROOM TO CHECK SERRANO AND O2 AND HE DOES NOT APPEAR TO AWAKEN, RESP EVEN AND UNLABORED, RR 18 AND SPO2 90% ON VAPOTHERM, HR 70'S.
--- NOTE | 2020-10-30 12:30 | NUR ---
RT IN TO WORK WITH PT
--- NOTE | 2020-10-30 14:35 | NUR ---
PT AT THIS TIME IS RESTING WITH EYES CLOSED. NO NEW CONCERNS NOTED AT THIS TIME.
--- NOTE | 2020-10-30 15:44 | NUR ---
No change in plan for dc at this time.
--- NOTE | 2020-10-30 17:10 | NUR ---
LIPITOR GIVEN WELL PRN VISTARIL. LINENS CHANGED, PT STOOD UP AT BEDSIDE, SATS REMAINED 90-95% WITH ACTIVITY WHILE ON VAPOTHERM 40L/55%.
--- NOTE | 2020-10-30 17:30 | NUR ---
PT WAS GIVEN A BEDBATH AND FRESH GOWN, TOLERATED WELL.
--- NOTE | 2020-10-30 18:47 | NUR ---
PT SITTING UP IN BED EATING DINNER, SPO2 96%, RR 18 CONTINUES ON VAPOTHERM 40L AND 55%.
--- NOTE | 2020-10-30 20:00 | NUR ---
PATIENT RESTING IN BED USING HIS PHONE. DENIES ANY NEEDS AT THIS TIME. TOLERATING VAPOTHERM 40L 55% Fi02.
--- NOTE | 2020-10-30 20:30 | NUR ---
PATIENT PROVIDED WITH EVENING MEDS INCLUDING PRN MEDS FOR PAIN, COUGH AND SLEEP. PATIENT REPORTS FEELING LESS SOB TONIGHT. ASSISTED WITH PM CARE OF BRUSHING HIS TEETH AND WASHING HIS FACE. TITRATED VAPOTHERM TO 35L 50% Fi02. LUNG SOUNDS ARE DIMINISHED IN THE BASES, CLEAR IN THE UPPER LOBES. SHALLOW BREATHING. ABD IS LARGE AND DISTENDED/FIRM. PATIENT DENIED NAUSEA AND REFUSED BOWEL CARE. DIFFICULT TO HEAR BOWEL SOUNDS OVER VAPOTHERM NOISE. PATIENT REPORTS PASSING GAS. IV SITE WNL. VS STABLE. PATIENT IS GOOD SPIRIRTS. DISCUSSED SIDE LAYING WHEN READY FOR SLEEP. NO OTHER NEEDS AT THIS TIME. CALL LIGHT IN REACH.
--- NOTE | 2020-10-30 22:57 | NUR ---
PATIENT SLEEPING SOUNDLY ON RIGHT SIDE. RR 17. O2 SAT 99% ON VAPOTHERM 35L 50% Fi02. TITRATED TO 35L 40% Fi02.
--- NOTE | 2020-10-30 23:58 | NUR ---
CHECKED ON PATIENT. HE IS RESTING ON BED, ON HIS RIGHT SIDE. RESPIRATIONS EVEN AND UNLABORED. REMAINS ON O2 VIA NC AT 2 L, SATS 93-95%.
--- NOTE | 2020-10-31 00:30 | NUR ---
PATIENT CONTINUES TO SLEEP SOUNDLY RR 16. O2 SATS 90-96% ON VAPOTHERM 35L 40% Fi02.
--- NOTE | 2020-10-31 02:47 | NUR ---
PATIENT TOLERATING VAPOTHERM 35L 40% Fi02. TITRATED TO 30L 35% Fi02. PATIENT CONTINUES TO HAVE O2 SATS 95%-99% ON THESE SETTINGS WITH ACTIVITY. PATIENT UP TO BEDSIDE TO VOID AND BACK IN BED. RT CALLED, TITRATED TO HIGHFLOW NC ON THE WALL AT 10L. PATIENT RETURNED TO SIDE LAYING POSITION. CONTINUED TO TITRATE TO 6L NC. ALLOWING PATIENT TO REST.
--- NOTE | 2020-10-31 04:30 | NUR ---
PATIENT RESTING IN BED AWAKE. TOLERATING 2L NC. SODA PROVIDED. PATIENT IN GOOD SPIRIRTS. DENIED ANY NEEDS. LUNG SOUNDS ARE CLEAR THROUGHOUT.
--- NOTE | 2020-10-31 06:30 | NUR ---
MORNING LABS DRAWN. VS STABLE. PATIENT CONTINUES TO TOLERATE 2L NC. BREAKFAST ORDER RECEIVED.
--- NOTE | 2020-10-31 07:52 | NUR ---
REPORT RECEIVED FROM DEMIAN THOMAS. PT AWAKE IN BED, HAS JUST ORDERED BREAKFAST, DENIES NEEDS.
--- NOTE | 2020-10-31 08:05 | NUR ---
IN TO DO ASSESSMENT AND AM MEDS, AND GIVE PT BREAKFAST. BREAKFAST SITTING UP IN BED ON HIGHFLOW N/C AT 2L, SPO2 90%. PT IS SAYING HE IS FEELING MUCH BETTER OVERALL. DENIES NEED FOR COUGH MEDICINE AT THIS TIME.
--- NOTE | 2020-10-31 09:44 | NUR ---
DR JORGE IN TO SEE PT
--- NOTE | 2020-10-31 10:20 | NUR ---
PT TAKEN OFF FARM MARKETER. IN TO GO TO THE BR. OXYGEN SATS DOWN TO 83-85% WITH ACTIVITY-O2 TURNED UP TO 4L AND SATS UP TO 88-90% WHILE UP. BACK TO BED, STATES HE DID HAVE A BOWEL MOVEMENT. NO NEEDS AT THIS TIME, CONTINUES ON 4L WITH SPO2 92%. PLAN OF CARE FOR THE DAY DISCUSSED WITH PT INCLUDING PLAN TO MOVE HIM OVER TO THE MEDICAL SURGICAL FLOOR AND PT OKAY WITH THAT.
--- NOTE | 2020-10-31 11:36 | NUR ---
IN TO CHECK ON PT, BACK IN BED WATCHING TV, SPO2 92-93% ON 4L/NC. DENIES NEEDS.
--- NOTE | 2020-10-31 12:45 | NUR ---
IN DO DO ASSESSMENT/VS. PT HAS JUST FINISHED UP HIS LUNCH, HAD BEEN AT 4L/NC WITH SPO2 UP TO 96%, TURNED DOWN TO 3L. NO CHANGE IN ASSESSMENT, PT REPORTS SORE SINUSES FROM O2 FLOW AND NOW "IM HAVING PHLEGM" BUT ALSO REPORTS LESS COUGHING. DENIES PAIN OR FURTHER NEEDS, PLAN TO MOVE TO MED SURG.
--- NOTE | 2020-10-31 13:30 | NUR ---
PT ARRIVED FROM CCU AT 1320. PT ON 2L O2 NC AND SATS ARE WDL. V/S WDL. NO NEW CONCERNS NOTED AT THIS TIME.
--- NOTE | 2020-10-31 14:55 | NUR ---
LLL IS COARSE, ALL OTHER LOBES ARE CLEAR, PT REMAINES ON 2L O2 AND ON 4L WITH ACTIVITY LIKE WALKING TO BATHROOM. OTHERWISE HIS ASSESSMENT WAS WDL. WILL CONTINUE TO MONITOR.
--- NOTE | 2020-10-31 18:10 | NUR ---
PT IN ROOM. NO NEW CONCERNS NOTED.
--- NOTE | 2020-10-31 18:11 | NUR ---
SINCE ARRIVAL TO NE PT HAS REMAINED ON 2L O2 NC WITH REST AND ABOUT 4L O2 WITH ACTIVITY. PT DENIES SOB AT ANY TIME. V/S WDL OVERALL, URINE OUTPUT IS WDL, PO INTKAE IS WDL, LOBES CLEAR SO FAR.
--- NOTE | 2020-10-31 19:35 | NUR ---
REPORT RECIEVED FROM WINNIE Alvarez RN. PATIENT IS RESTING COMFORTABLY BED WATCHING TV AT THIS TIME, REMIANS ON2L O2 VUA NC SATS 92-93%. PATIENT DENIES ANY NEEDS AT THIS TIME. INFORMED PATIENT THIS RN WILL BE IN DO GET HIS VITALS AND GIVE NIGHT TIME MEDS.
--- NOTE | 2020-10-31 20:31 | NUR ---
PATIENT CONTINUES TO REST IN BED WATCHING TV, REMIANS ON O2 VIA NC AT 2L. DENIES ANY NEEDS, WILL BE IN TO GIVE NIGHT TIME MEDS SOON
--- NOTE | 2020-10-31 21:22 | NUR ---
IN ROOM TO GIVE PATIENT'S NIGHT MEDS SEE EMAR./ ALSO PATIENT CONTINUES TO REFUSE MIRALAX AND STOOL SOFTENER. PATIENT IS DENYING ANY NEW REQUESTS AT THIS TIME. DENIES PAIN. PATIENT ASSESSMENT COMPLETE. VITALS VOMPLETE. IV SITE TO RIGHT FOREARM IS PATENT FLUSHED WITH 5ML NS, PULLS, NO EDEMA NOTED.
--- NOTE | 2020-10-31 22:42 | NUR ---
CHECKING ON PATIENT. HE IS RESTING IN BED REMAINS ON O2 VIA NC AT 2 LITERS, 95% SAT. CAMILLA LIGHT REMAINS IN REACH. ON CONTINUOUS SAT MONITORING. RESPIRATIONS EVEN UNLABORED.
--- NOTE | 2020-11-01 01:12 | NUR ---
IN ROOM AFTER PATIENT USED CALL LIGHT, HE REQUESTED "7-UP" PATIENT PROVIDED DRINK. PATIENT HAS ALSO VOIDED 350 ML URINE IN HAT, THIS WAS EMPTIED. PATIENT DENIES ANY OTHER NEEDS. DENIES PAIN. REMAINS ON 2 L O2 VIA NC SATS 93%. CALL LIGHT IN REACH.
--- NOTE | 2020-11-01 02:16 | NUR ---
THIS RN IN ROOM TO CHECK ON PATIENT. PATIENTHAS BEEN SLEEPING, DRANK MOST OF HIS SODA. DENIES ANY NEEDS AT THIS TIME, CONTINUES TO DENY PAIN "OTHER THAN MY DEGENERATIVE STUFF I'VE HAD FOR YEARS" ASKED PATIENT IF THERE IS ANYTHING HE WOULD LIKE TO DO FOR HIS PAIN, STATES "NO, IT'S ALWAYS THERE" VITALS OBTAINED. CALL LIGHT IN REACH. REMAINS ON 2 L O2 VIA NC, SATS 92-93%.
--- NOTE | 2020-11-01 04:58 | NUR ---
IN ROOM TO OBTAIN MORNING LAB DRAW AND CHECK ON PATIENT. HE IS RESTING ON BED IN UPRIGHT POSITION WATCHING TV. PATIENT HAS VOIDED 350 ML IN HAT IN TOILET. HAS DRANK 300 ML FLUID. DENIES ANY NEEDS AT THIS TIME. LAB DRAWN FROM IV SITE TO RIGHT ARM AFTER FLUSHING AND DISCARDED 10 ML.
--- NOTE | 2020-11-01 06:25 | NUR ---
IN ROOM TO CHANGE TELE BATTERY, PATIENT DENIES HAVING USED RESTROOM TO VOID HE WAS SLEEPING HAS NOT HAD ANY MORE FLUID TO DRINK SINCE I CHECKED LAST. DENIES ANY NEDS AT THIS TIME.
--- NOTE | 2020-11-01 06:27 | NUR ---
PATIENT WAS AWKAE ON AND OFF DURING THE NIGHT WATCHING TV. PATIENT WAS FINALLY ABLE TO FALL INTO A RESTFUL SLEEP EARLIER THIS MORNING. PATIENT HAS USED TOILET IN RESTROOM TO VOID SEVERAL TIMES THIS SHIFT WITH ONLY STANDBY ASSIST IF NEEDED. DRINKING WATER AND 7-UP. PATIENT DENIES FEELING SOB. REMAINS ON O2 AT 2LITERS VIA NC. LUNGS SOUNDS ARE CLEAR, RESPIRATIONS EVEN AND UNLABORED. PATIENT HAS STATED HE IS "READY TO GO HOME"
--- NOTE | 2020-11-01 07:30 | NUR ---
RECEIVED REPORT AROUND 0700, PT WAS IN ROOM. NO NEW CONCERNS NOTED AT THAT TIME.
--- NOTE | 2020-11-01 08:45 | NUR ---
ALL LOBES ARE CLEAR, PT REMAINS ON 2L O2 NC AND WILL D/C TODAY W/HOME O2. ABD SOUNDS PRESENT, URINE OUPUT IS WDL, PO INTAKE WDL, NE NEW ISSUES WERE NOTED WITH ASSESSMENT THIS MORNING OVERALL.
--- NOTE | 2020-11-01 10:20 | NUR ---
PT APPROVED FOR HOME O2.
--- NOTE | 2020-11-01 12:00 | NUR ---
PT IN ROOM. NO NEW CONCERNS NOTED AT THIS TIME.
[2020-11-01] MEDS ORDERED: DEXAMETHASONE6 MG PO (12:07)
--- NOTE | 2020-11-01 14:00 | NUR ---
PT GETTING READY FOR D/C. NO NEW CONCENRS NOTED AT THIS TIME.
== END 2020-11-01 14:40 | disposition home or self-care (01) | DRG 177 ==
LOC: ED 10:58 → MS 15:25 → CCU 10-28 21:33 → MS 10-31 12:15
PROVIDERS: ADMIT Internal Medicine; ATTEND Internal Medicine
PROC: 8E0ZXY6 Isolation (ICD-10-PCS; principal; 2020-10-25)
PROC: XW033E5 Introduction of Remdesivir Anti-infective into Peripheral Vein, Percutaneous Approach, New Technology Group 5 (ICD-10-PCS; 2020-10-26)
PROC: 3E0333Z Introduction of Anti-inflammatory into Peripheral Vein, Percutaneous Approach (ICD-10-PCS; 2020-10-26)
DX: U07.1 COVID-19 (principal); J12.82 Pneumonia due to coronavirus disease 2019; J96.01 Acute respiratory failure with hypoxia; I10 Essential (primary) hypertension; E78.5 Hyperlipidemia, unspecified; I48.0 Paroxysmal atrial fibrillation; Z90.49 Acquired absence of other specified parts of digestive tract; Z90.89 Acquired absence of other organs; Z98.890 Other specified postprocedural states; Z88.8 Allergy status to other drugs, medicaments and biological substances; Z79.82 Long term (current) use of aspirin; Z79.899 Other long term (current) drug therapy
CPT/HCPCS: 71045; 80053; 80076; 83735; 84484; 85025; 93005; 93010; 94640; 94660; 94667; 94668; 94760; 94761; 94762; 94799; 96374; 99285-25; A9270; J1100; J1650; J7050; Q0177

== ENCOUNTER 2021-05-26 14:40 | Emergency (ER) | payer MEDICARE, OTHER ==
[~2021-05-26] VITALS: Ht 188 cm; Wt 117.9 kg
[~2021-05-26 14:40] MED LIST changes: +DEXAMETHASONE6 MG PO; +IRBESARTAN-HCT1 EACH PO; +VIRTUSSIN AC L118 ML PO
--- OUTSIDE RECORDS SUMMARY | 2021-05-26 14:48 | XMS ---
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 E.Edy VISIT COUNT (12 MO.) 2 [facility] Schmitd TOTAL 2 NOTE: Visits indicate total known visits. 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 - Acquired absence of other organs - COVID-19 - Other specified postprocedural states - Acquired absence of other specified parts of digestive tract - Hyperlipidemia, unspecified - Other exterminator (current) drug therapy - Paroxysmal atrial fibrillation - Paroxysmal atrial fibrillation - Other specified postprocedural states - Other custodial (current) drug therapy - FCI (current) use of aspirin - Acute respiratory failure with hypoxia - Hyperlipidemia, unspecified - Essential (primary) hypertension - Allergy status to other drugs, medicaments and biological substances - Acquired absence of other organs - Essential (primary) hypertension - Allergy status to other drugs, medicaments and biological substances - Acquired absence of other specified parts of digestive tract - Acute respiratory failure with hypoxia [email or web address]
== END 2021-05-26 17:10 | disposition home or self-care (01) ==
LOC: ED 14:40
DX: S61.012A Laceration without foreign body of left thumb without damage to nail, initial encounter (principal); I10 Essential (primary) hypertension; E78.5 Hyperlipidemia, unspecified; I48.91 Unspecified atrial fibrillation; Z88.8 Allergy status to other drugs, medicaments and biological substances; Z79.899 Other long term (current) drug therapy; Z79.82 Long term (current) use of aspirin; W27.0XXA Contact with workbench tool, initial encounter
CPT/HCPCS: 12002; 73140; 90471; 90715; 99283-25

== ENCOUNTER 2022-01-06 06:33 | Emergency (ER) | payer MEDICARE, OTHER ==
[~2022-01-06] VITALS: Ht 188 cm; Wt 117.9 kg
[2022-01-06] MEDS ORDERED: ANTIVERT25 M1 PO (07:45)
--- NOTE | 2022-01-07 12:46 | EKG ---
[facility] [address] [place] [address] Signed Sinus rhythm with marked sinus arrhythmia Otherwise normal ECG When compared with ECG of 25-OCT-2020 11:47, aberrant conduction is no longer present Confirmed by BON REDD MD ([id number]) on 01/07/2022 12:46:48 PM Electronically Signed By: BON REDD MD 01/07/22 1246 PATIENT NAME: SHOSHANA JARAMILLO Electrocardiogram DATE OF : 57 PHYSICIAN: BON REDD MD REPORT #: [id number] REPORT IS CONFIDENTIAL AND NOT TO BE RELEASED WITHOUT AUTHORIZATION
== END 2022-01-06 07:59 | disposition home or self-care (01) ==
LOC: ED 06:33
DX: R42 Dizziness and giddiness (principal); I10 Essential (primary) hypertension; E78.5 Hyperlipidemia, unspecified; Z88.8 Allergy status to other drugs, medicaments and biological substances; Z79.82 Long term (current) use of aspirin
CPT/HCPCS: 36415; 70450; 80053; 81001; 85025; 93005; 93010

== ENCOUNTER 2023-11-24 12:19 | Emergency (ER) | payer MEDICARE, OTHER ==
[~2023-11-24] VITALS: Ht 188 cm; Wt 123.6 kg
[~2023-11-24 12:19] MED LIST changes: +ANTIVERT25 M1 PO; +BACTRIM DS TAB1 EACH PO
[2023-11-24] MEDS ORDERED: NEBIVOLOL HCL5 MG PO (12:38)
[2023-11-24] MEDS ORDERED: NAPROXEN500 MG PO (12:38)
[2023-11-24 12:53] LABS: BASOPHILS 0.4 % (0-2); EOSINOPHILS 1.2 % (0-6); HEMATOCRIT 44.4 % (35.0-50.0); HEMOGLOBIN 15.3 g/dL (12.0-18.0); LYMPHOCYTES 10.2 % (24-44); MCH 31.4 (27-36); MCHC 34.4 g/dl (30-36); MONOCYTES 5.1 % (0-12); NEUTROPHILS 83.1 % (39-80); PLATELET COUNT 204 K/uL (140-440); RBC 4.88 M/ul (4.3-5.7); RDW 13.3 (10.5-15.0)
[2023-11-24 13:16] LABS: PARTIAL THROMBOPLASTIN TIME 26.1 Sec (22.9-41.3)
[2023-11-24 13:17] LABS: INR 1.09 (0.80-1.30); PROTIME 13.4 Sec (11.2-14.2)
[2023-11-24 13:21] LABS: ALBUMIN 3.9 g/dL (3.4-5.0); ALKALINE PHOSPHATASE 60 U/L (46-116); ALT (SGPT) 26 U/L (14-59); ANION GAP 10.6 (7-21); AST (SGOT) 13 U/L (15-37); BILIRUBIN, TOTAL 0.6 ng/dL (0.2-1.0); CALCIUM 9.1 mg/dL (8.5-10.1); CARBON DIOXIDE 27 mmol/L (21-32); CHLORIDE 102 mmol/L (98-107); CREATININE, SERUM 1.36 mg/dL (0.70-1.30); GLOMERULAR FILTRATION RATE,EST 57 mL/min (>60); POTASSIUM 3.6 mmol/L (3.5-5.1); PROTEIN, TOTAL 6.5 g/dL (6.4-8.2); UREA NITROGEN 20 mg/dL (7-18)
[2023-11-24] MEDS ORDERED: ondansetron HCL 4 MG/2 ML VIAL IV ONE (13:45)
[2023-11-24] MEDS ORDERED: MECLIZINE HCL 25 MG TAB PO ONE (13:45)
[2023-11-24] MEDS ORDERED: OXYMETAZOLINE HCL 30 ML BTL NAS ONE (13:45)
[2023-11-24] MEDS ORDERED: ONDANSETRON ODT8 MG PO (14:43)
[2023-11-24] MEDS ORDERED: MECLIZINE HCL25 MG PO (14:43)
[2023-11-24 14:55] VITALS: BP 132/60
--- NOTE | 2023-11-25 16:21 | EKG ---
[facility] [address] [place] [address] Signed Sinus rhythm with premature atrial complexes Left atrial enlargement Otherwise normal ECG When compared with ECG of 06-JAN-2022 06:35, premature atrial complexes are now present Confirmed by Oscar Anderson MD ([id number]) on 11/25/2023 4:21:34 PM Electronically Signed By: OSCAR ANDERSON MD 11/25/23 1621 PATIENT NAME: SHOSHANA JARAMILLOVILLE Electrocardiogram DATE OF : 57 PHYSICIAN: OSCAR ANDERSON MD REPORT #: [id number] REPORT IS CONFIDENTIAL AND NOT TO BE RELEASED WITHOUT AUTHORIZATION
== END 2023-11-24 14:55 | disposition home or self-care (01) ==
LOC: ED 12:19
PROVIDERS: Emergency Medicine
DX: H81.399 Other peripheral vertigo, unspecified ear (principal); I48.91 Unspecified atrial fibrillation; E78.5 Hyperlipidemia, unspecified; I10 Essential (primary) hypertension; Z79.1 Long term (current) use of non-steroidal anti-inflammatories (NSAID); Z79.82 Long term (current) use of aspirin; Z88.8 Allergy status to other drugs, medicaments and biological substances
CPT/HCPCS: 36415; 70450; 70496; 70498; 80053; 84484; 85025; 85610; 85730; 93005; 93010; 99284-25; A9270; J2405; Q9967

== ENCOUNTER 2023-12-14 01:03 | Emergency (ER) | payer MEDICARE, OTHER ==
[~2023-12-14] VITALS: Ht 188 cm; Wt 122.0 kg
[~2023-12-14 01:03] MED LIST changes: +MECLIZINE HCL25 MG PO; +NAPROXEN500 MG PO; +NEBIVOLOL HCL5 MG PO; +ONDANSETRON ODT8 MG PO
--- OUTSIDE RECORDS SUMMARY | 2023-12-14 01:06 | XMS ---
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 Emanuel VISIT COUNT (12 MO.) 2 [facility] TOTAL 2 NOTE: Visits indicate total known visits. 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
[2023-12-14 01:42] LABS: BASOPHILS 0.7 % (0-2); EOSINOPHILS 1.5 % (0-6); HEMOGLOBIN 15.8 g/dL (12.0-18.0); LYMPHOCYTES 17.3 % (24-44); MCH 31.1 (27-36); MCHC 34.3 g/dl (30-36); MCV 90.7 fl (81-99); MONOCYTES 6.2 % (0-12); NEUTROPHILS 74.3 % (39-80); PLATELET COUNT 213 K/uL (140-440); RBC 5.07 M/ul (4.3-5.7); RDW 13.3 (10.5-15.0)
[2023-12-14 02:00] LABS: ALBUMIN 4.2 g/dL (3.4-5.0); ALBUMIN/GLOBULIN RATIO 1.45 (1.1-2.4); ANION GAP 12.8 (7-21); BILIRUBIN, TOTAL 0.6 ng/dL (0.2-1.0); BUN/CREATININE RATIO 18.48 (6.0-28.6); CALCIUM 9.6 mg/dL (8.5-10.1); CREATININE, SERUM 1.19 mg/dL (0.70-1.30); POTASSIUM 3.8 mmol/L (3.5-5.1); PROTEIN, TOTAL 7.1 g/dL (6.4-8.2)
[2023-12-14 02:03] LABS: PARTIAL THROMBOPLASTIN TIME 27.2 Sec (22.9-41.3)
[2023-12-14 02:10] LABS: INR 1.08 (0.80-1.30); PROTIME 13.3 Sec (11.2-14.2)
[2023-12-14 03:30] VITALS: BP 160/80
[2023-12-14] MEDS ORDERED: MECLIZINE HCL25 MG PO (03:34)
[2023-12-14] MEDS ORDERED: NORVASC5 MG PO (03:38)
--- NOTE | 2023-12-14 21:48 | EKG ---
[facility] [address] [place] [address] Signed Sinus bradycardia Otherwise normal ECG When compared with ECG of 24-NOV-2023 12:36, premature atrial complexes are no longer present Confirmed by Yoko Colvin MD () on 12/14/2023 9:48:30 PM Electronically Signed By: YOKO COLVIN MD 12/14/23 2148 PATIENT NAME: JARAMILLOSHOSHANA SRIRAM Electrocardiogram DATE OF : 57 PHYSICIAN: YOKO COLVIN MD REPORT #: [id number] REPORT IS CONFIDENTIAL AND NOT TO BE RELEASED WITHOUT AUTHORIZATION
== END 2023-12-14 03:50 | disposition home or self-care (01) ==
LOC: ED 01:03
PROVIDERS: Family Medicine
DX: R42 Dizziness and giddiness (principal); R00.1 Bradycardia, unspecified; I10 Essential (primary) hypertension; E78.5 Hyperlipidemia, unspecified; I48.91 Unspecified atrial fibrillation; Z88.8 Allergy status to other drugs, medicaments and biological substances; Z79.82 Long term (current) use of aspirin; Z79.899 Other long term (current) drug therapy
CPT/HCPCS: 36415; 80053; 84484; 85025; 85610; 85730; 93005; 93010; 99284

== ENCOUNTER 2024-03-25 14:47 | Emergency (ER) | payer MEDICARE, OTHER ==
[~2024-03-25] VITALS: Ht 188 cm; Wt 119.7 kg
[~2024-03-25 14:47] MED LIST changes: +NORVASC5 MG PO
[2024-03-25 15:36] LABS: BASOPHILS 0.5 % (0-2); EOSINOPHILS 2.2 % (0-6); HEMATOCRIT 43.6 % (35.0-50.0); HEMOGLOBIN 15.3 g/dL (12.0-18.0); LYMPHOCYTES 24.1 % (24-44); MCHC 35.2 g/dl (30-36); MCV 91.1 fl (81-99); MONOCYTES 9.5 % (0-12); NEUTROPHILS 63.7 % (39-80); PLATELET COUNT 230 K/uL (140-440); RBC 4.79 M/ul (4.3-5.7)
[2024-03-25 15:53] LABS: ALBUMIN 3.8 g/dL (3.4-5.0); ALBUMIN/GLOBULIN RATIO 1.31 (1.1-2.4); ANION GAP 8.8 (7-21); BILIRUBIN, TOTAL 0.4 ng/dL (0.2-1.0); BUN/CREATININE RATIO 17.24 (6.0-28.6); CALCIUM 9.3 mg/dL (8.5-10.1); CREATININE, SERUM 1.16 mg/dL (0.70-1.30); POTASSIUM 3.8 mmol/L (3.5-5.1); PROTEIN, TOTAL 6.7 g/dL (6.4-8.2)
[2024-03-25] MEDS ORDERED: NORVASC2.5 MG PO (16:42)
[2024-03-25 16:55] VITALS: BP 144/76
== END 2024-03-25 16:56 | disposition home or self-care (01) ==
LOC: ED 14:47
PROVIDERS: Emergency Medicine
DX: I10 Essential (primary) hypertension (principal); I48.0 Paroxysmal atrial fibrillation; E78.5 Hyperlipidemia, unspecified; Z88.8 Allergy status to other drugs, medicaments and biological substances; Z79.82 Long term (current) use of aspirin; Z79.899 Other long term (current) drug therapy
CPT/HCPCS: 36415; 80053; 84484; 85025; 99284

== ENCOUNTER 2024-11-14 04:38 | Emergency (ER) | payer MEDICARE, OTHER ==
[~2024-11-14] VITALS: Ht 188 cm; Wt 120.2 kg
[~2024-11-14 04:38] MED LIST changes: +NORVASC2.5 MG PO
[2024-11-14] MEDS ORDERED: LIDOCAINE 2% VISCOUS 6 ML SYR TOP ONE (04:45)
[2024-11-14] MEDS ORDERED: FLOMAX0.4 MG PO (04:52)
[2024-11-14 04:58] LABS: BLOOD/HGB, URINE LARGE (Negative); KETONE, URINE NEGATIVE (Negative); LEUK ESTERASE, URINE NEGATIVE (negative); NITRITE, URINE NEGATIVE (negative)
[2024-11-14 05:04] LABS: EPITHELIAL CELLS, URINE SQUAMOUS 1+ /lpf (0-1+)
[2024-11-14 05:06] LABS: BACTERIA, URINE RARE /hpf (negative); CASTS, URINE NONE SEEN \\lpf; CRYSTALS, URINE NONE SEEN (0-1+); REFLEX CULTURE, URINE No (No)
[2024-11-14] MEDS ORDERED: TAMSULOSIN HCL 0.4 MG CAP PO ONE (05:15)
[2024-11-14 05:37] VITALS: BP 160/86
== END 2024-11-14 05:38 | disposition home or self-care (01) ==
LOC: ED 04:38
PROVIDERS: Family Medicine
DX: R33.9 Retention of urine, unspecified (principal); I10 Essential (primary) hypertension; I48.91 Unspecified atrial fibrillation; Z88.8 Allergy status to other drugs, medicaments and biological substances; Z79.82 Long term (current) use of aspirin; Z79.899 Other long term (current) drug therapy
CPT/HCPCS: 51702; 51798; 81001; 99283-25; A4311

== ENCOUNTER 2024-11-16 04:20 | Emergency (ER) | payer MEDICARE, OTHER ==
[~2024-11-16] VITALS: Ht 188 cm; Wt 121.0 kg
[~2024-11-16 04:20] MED LIST changes: +FLOMAX0.4 MG PO
--- OUTSIDE RECORDS SUMMARY | 2024-11-16 04:25 | XMS ---
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 Physician Account Clerk 12/15/2018-Current PHONE: Unknown Erica has no Care Guidelines for this patient. Emanuel VISIT COUNT (12 MO.) 5 [facility] TOTAL 5 NOTE: Visits indicate total known visits. 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 - Retention of urine, unspecified - Unspecified atrial fibrillation 03/25/2024 14:48 [facility] [place] TYPE: Emergency COMPLAINT: - HIGH BLOOD PRESURER DIAGNOSES: - Allergy status to other drugs, medicaments and biological substances - Essential (primary) hypertension - Hyperlipidemia, unspecified - [facility] (current) use of aspirin - Other jail (current) drug therapy - Paroxysmal atrial fibrillation 12/14/2023 01:04 [facility] TYPE: Emergency COMPLAINT: - BLOOD PRESSURE PROBLEM DIAGNOSES: - Allergy status to other drugs, medicaments and biological substances - Bradycardia, unspecified - Dizziness and giddiness - Essential (primary) hypertension - Hyperlipidemia, unspecified - [facility] (current) use of aspirin - Other jail (current) drug therapy - Unspecified atrial fibrillation 11/24/2023 12:20 [facility] TYPE: Emergency COMPLAINT: - NAUSEA DIAGNOSES: - Allergy status to other drugs, medicaments and biological substances - Dizziness and giddiness - Essential (primary) hypertension - Hyperlipidemia, unspecified - [facility] (current) use of aspirin - [facility] (current) use of non-steroidal anti-inflammatories (NSAID) - Other peripheral vertigo, unspecified ear - Unspecified atrial fibrillation INPATIENT VISIT TRACKING (12 MO.) No inpatient visits to display in this time frame [email or web address]
[2024-11-16 04:46] LABS: BLOOD/HGB, URINE LARGE (Negative); KETONE, URINE NEGATIVE (Negative); LEUK ESTERASE, URINE SMALL (negative); NITRITE, URINE NEGATIVE (negative)
[2024-11-16 04:52] LABS: BACTERIA, URINE RARE /hpf (negative); CASTS, URINE NONE SEEN \\lpf; CRYSTALS, URINE NONE SEEN (0-1+); EPITHELIAL CELLS, URINE SQUAMOUS 1+ /lpf (0-1+)
[2024-11-16 04:53] LABS: REFLEX CULTURE, URINE No (No)
[2024-11-16] MEDS ORDERED: FLOMAX0.4 MG PO (05:11)
[2024-11-16 05:16] VITALS: BP 163/98
== END 2024-11-16 05:17 | disposition home or self-care (01) ==
LOC: ED 04:20
PROVIDERS: Internal Medicine
DX: R31.9 Hematuria, unspecified (principal); I10 Essential (primary) hypertension; E78.5 Hyperlipidemia, unspecified; N40.1 Benign prostatic hyperplasia with lower urinary tract symptoms; R33.8 Other retention of urine; Z88.8 Allergy status to other drugs, medicaments and biological substances; Z79.82 Long term (current) use of aspirin; Z79.899 Other long term (current) drug therapy
CPT/HCPCS: 51798; 81001; 99283